=== PATIENT | male | born 1955 | race Two or more races ===

== ENCOUNTER 2020-03-13 13:19 | Emergency (ER) | payer MEDICARE, MEDICAID ==
[~2020-03-13] VITALS: Ht 177.8 cm; Wt 79.4 kg
--- NOTE | 2020-03-13 13:52 | Emergency Room Report ---
History of Present Illness General Chief Complaint: Pain Source: Patient Present Illness HPI 64-year-old male presents to the emergency department complaining of 10 out of 10 severity acute onset pain tenderness and some swelling to the right side of his rib cage status post mechanical slip and fall yesterday afternoon. Patient denies hitting his head or having a loss of consciousness. Patient reports history of chronic neck and back pain and states that he has no changes to his chronic symptoms. Patient reports he was ambulatory after the incident. He reports taking a deep breath or talking exacerbates his symptoms as well as palpation. He denies obvious bruising. He denies taking blood thinning medications. He denies hemoptysis. He reports that he takes 30 mg oxycodone regularly with no relief of his symptoms. Denies numbness tingling or loss of sensation or gross motor movements of the extremities, incontinence of bowel or bladder. Denies CP, Palpitations, AMS, dizziness, Changes in Vision, weakness or a sudden severe headache. 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 Patient History Past Medical History: see triage record Past Surgical History: none Pertinent Family History: none Reviewed Nursing Documentation: PMH: Agreed; PSxH: Agreed Nursing Documentation-PMH Past Medical History: No History, Except For Review of Systems All Other Systems: negative except mentioned in HPI Physical Exam Vital Signs Date Time Temp Pulse Resp B/P (MAP) Pulse Ox O2 Delivery O2 Flow Rate FiO2 03/13/20 13:26 97.5 76 18 134/63 (86) 95 Room Air Sp02 EP Interpretation: reviewed, normal General Appearance: no apparent distress, alert, GCS 15, non-toxic Head: normocephalic, atraumatic Eyes: bilateral eye normal inspection, bilateral eye PERRL ENT: hearing grossly normal, normal voice Neck: full range of motion Respiratory: lungs clear, normal breath sounds, no respiratory distress, no accessory muscle use, no wheezing, speaking full sentences, other - No flail chest, no bruising. --Tenderness to the upper right lateral aspect of the ribs Cardiovascular #1: regular rate, rhythm Gastrointestinal: non tender, soft Rectal: deferred Genitourinary: normal inspection Musculoskeletal: back normal, normal range of motion, gait/station normal, tender - TTP to the lateral aspect of the upper right sided ribs Neurologic: alert, motor strength/tone normal, oriented x3, sensory intact, responsive, speech normal Psychiatric: judgement/insight normal Skin: no rash, normal color Medical Decision Making PA Attestation Dr. Charles is my supervising Physician whom patient management has been discussed with. Diagnostic Impression: Primary Impression: Right rib fracture Qualified Codes: S22.31XA - Fracture of one rib, right side, initial encounter for closed fracture Additional Impressions: Multiple pulmonary nodules determined by computed tomography of lung Hepatic cyst Renal cyst ER Course 64-year-old male presents to the emergency department complaining of 10 out of 10 severity acute onset pain tenderness and some swelling to the right side of his rib cage status post mechanical slip and fall yesterday afternoon. Patient denies hitting his head or having a loss of consciousness. Patient reports history of chronic neck and back pain and states that he has no changes to his chronic symptoms. Patient reports he was ambulatory after the incident. He reports taking a deep breath or talking exacerbates his symptoms as well as palpation. He denies obvious bruising. He denies taking blood thinning medications. He denies hemoptysis. He reports that he takes 30 mg oxycodone regularly with no relief of his symptoms. Denies numbness tingling or loss of sensation or gross motor movements of the extremities, incontinence of bowel or bladder. Denies CP, Palpitations, AMS, dizziness, Changes in Vision, weakness or a sudden severe headache. Ddx considered but are not limited to Fracture, dislocation, contusion, S prain/Strain/Spasm, rib cage contusion, hemothorax/hemopneumothorax just to name a few Vital signs: are WNL, pt. is afebrile H&PE are most consistent with musculoskeletal injury will perform imaging to r/o fractures/dislocations. --No obvious flail chest no bruising clear lung sounds bilaterally ORDERS: -CT chest without contrast: Single fracture of the right 6th rib. no hemoth orax.Incidental pulmonary nodules, and liver and renal cysts as well. ED INTERVENTIONS: -Lidoderm patch TP --I discussed the results of CT imaging findings with this patient. Discussed single rib fracture as well as conservative treatments at home and need for spirometer and pulmonary follow-up. Also discussed the incidental findings of pulmonary nodules, renal and liver cysts with this patient and discussed need for follow-up imaging and PCP evaluation to exclude cancer. Patient does report having approximately 40 pound weight loss this year. He denies night sweats or history of cancer in the family. d/w pt. due to CT findings and having constitutional symptoms cancer should be of high suspicion until ruled out. Pt. to have urgent follow up with his PCP. He is given a copy of the official radiological report, and the important/concerning findings were highlighted for him for ease of reading. --PT. is to receive Spirometer from [facility]. 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 Per ED RN pt. will return around 1700 for Spirometer. DISCHARGE: At this time pt. is stable for d/c to home. Will provide printed patient care instructions, and any necessary prescriptions. Care plan and follow up instructions have been discussed with the patient prior to discharge. CT/MRI/US Diagnostic Results CT/MRI/US Diagnostic Results : Imaging Test Ordered: CT chest no contrast Impression " Impression: Positive for solitary fracture of the right lateral sixth rib. No evidence of pneumothorax or underlying pulmonary parenchymal contusion Small cystic spaces, may indicate early COPD changes. Right upper lobe, left upper lobe and left lower lobe nodules, as described. Recommend short interval 6-12 month follow-up Incidental finding of multiple hepatic cysts and right renal cyst ." --Per official radiology report- Please see report for specific details. Last Vital Signs Date Time Temp Pulse Resp B/P (MAP) Pulse Ox O2 Delivery O2 Flow Rate FiO2 03/13/20 13:26 97.5 76 18 134/63 (86) 95 Room Air Status: improved Disposition: HOME, SELF-CARE Condition: Stable Scripts Ibuprofen* (MOTRIN*) 600 Mg Tablet 600 MG ORAL THREE TIMES A DAY, #20 TAB Prov: Addie Tarango 03/13/20 Lidocaine Patch* (Lidoderm Patch*) 1 Each Adh..patch 1 PATCH TOPIC DAILY, #30 PATCH 0 Refills Patch(es) may remain in place for up to 12 hours in any 24-hour period. Prov: Addie Tarango 03/13/20 Referrals: Loreto Kraft. [facility] Patient Instructions: Pulmonary Nodule, [id number], Rib Fracture Additional Instructions: Take medications as directed. Continue to take previously prescribed oxycodone from Dr. Gusman as directed. Contact Dr. Gusman for any changes to medication dosage if pain is not controlled. Follow up with a Primary Care Provider in 3-5 days, even if your symptoms have resolved. Pulmonary eval within 2 to 3 weeks Return sooner to ED if new symptoms occur, or current symptoms become worse. Do not drink alcohol, drive, or operate heavy machinery while taking Your Oxycodone 30mg as this may cause drowsiness. - Please note that this Emergency Department Report was dictated using [employer] starch operator technology software, occasionally this can lead to erroneous entry secondary to interpretation by the dictation equipment. Addie Tarango Mar 13, 2020 13:52
--- NOTE | 2020-03-13 14:15 | NUR ---
ED Nurse Note: Patient presents to ER due to right lower rib pain since 0800 yesterday. Patient reports increased pain with deep breathing. Denies any CP, dyspnea or SOB. No bruise or redness noted over the affected site. Patient awake, alert, oriented x 4. Regular, unlabored breathing noted. Bed in lowest position.
--- NOTE | 2020-03-13 14:45 | Diagnostic Imaging Report ---
Clinical Indication: Right-sided rib pain after mechanical slip and fall yesterday Technique: Spiral acquisitions obtained through the chest. No IV contrast utilized, reason as stated. Multiplanar reconstructions generated. Total dose length product 193 mGycm. CTDIvol(s) for mGy. Dose reduction achieved using automated exposure control Comparison: none Findings: There is a fracture of the right lateral sixth rib. No other rib fractures are evident. The remaining bones are intact and unremarkable. There is an indistinct nodular opacity in the right upper lobe, image 14 series 5, which measures 5 mm in diameter. There is a 3 mm nodular opacity in the left upper lobe, on the same image There is a 3 mm subpleural opacity in the posterolateral left lower lobe, image 46 of series 5. A few small cystic spaces are demonstrated in the right lower lobe, as well as the left upper lobe. There are some dependent atelectatic changes bilaterally. No infiltrates. No effusions. The heart size is normal. No pericardial effusion. No mediastinal or hilar mass or adenopathy. The thyroid is unremarkable. No axillary or chest wall mass or adenopathy. The included upper abdomen laterally demonstrates multiple hepatic cysts. There is a right renal cyst incidentally noted.. Impression: Positive for solitary fracture of the right lateral sixth rib. No evidence of pneumothorax or underlying pulmonary parenchymal contusion Small cystic spaces, may indicate early COPD changes. Right upper lobe, left upper lobe and left lower lobe nodules, as described. Recommend short interval 6-12 month follow-up Incidental finding of multiple hepatic cysts and right renal cyst The CT scanner at [facility] is accredited by the [employer] and the scans are performed using protocols designed to limit radiation exposure to as low as reasonably achievable to attain images of sufficient resolution adequate for diagnostic evaluation.
--- NOTE | 2020-03-13 15:00 | NUR ---
ED Nurse Note: [facility] contacted for incentive spirometer.
[2020-03-13] MEDS ORDERED: IBUPROFEN600 M1 ORAL (15:03)
[2020-03-13] MEDS ORDERED: LIDODERM700 M1 TOPIC (15:03)
[2020-03-13 15:21] VITALS: BP 130/78
--- NOTE | 2020-03-13 15:21 | NUR ---
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 He states he will return to ER by 1700 today.
--- NOTE | 2020-03-13 15:22 | NUR ---
ED discharge: Patient is cleared to be discharged per ERMD. D/C instruction and prescription given to patient. All questions were answered. Patient verbalized understanding of it. ID band removed. Patient agreed to f/u with PCP and return to ER for incentive spirometry. Patient ambulated out with steady gait with all her belongings. Addendum: 03/13/20 at 1645 by LORNA No facial grimacing or guarding noted.
[2020-03-13] MEDS ORDERED: OXYCODONE HCL15 M1 ORAL (16:46)
== END 2020-03-13 15:21 | disposition home or self-care (01) ==
LOC: EMR 13:35
DX: S22.31XA Fracture of one rib, right side, initial encounter for closed fracture (principal); R91.8 Other nonspecific abnormal finding of lung field; K76.89 Other specified diseases of liver; N28.1 Cyst of kidney, acquired; W01.0XXA Fall on same level from slipping, tripping and stumbling without subsequent striking against object, initial encounter; Y93.9 Activity, unspecified; Y92.9 Unspecified place or not applicable
CPT/HCPCS: 71250; 99284